=== PATIENT | male | born 1945 | race Caucasian/White ===

== ENCOUNTER → 2016-11-17 | Outpatient (CLI) | payer OTHER ==
[~2016-11-17] MED LIST: ACET325T26 PO; AMLO5TAB4 PO; AMOX1TAB64 PO; ASPI-496 PO; BACL-19 PO; BISA5TAB5 PO; CALC300T5 PO; CLOP75TA52 PO; DOCU100C33 PO; HYDR-3237 PO; LACT1CAP24 PO; LISI-170 PO; METO-93 PO; MULT1TAB13 PO; NICO1PAT13 TD; NICO1PAT16 TD; OMEP-110 PO; PRAZ5CAP2 PO; SIMV40TA PO; [UNRECOGNIZED DRUG - CODE] PO
== END | disposition home or self-care (01) ==
LOC: CVU 06:53
PROVIDERS: ATTEND Family Medicine
DX: I73.9 Peripheral vascular disease, unspecified (principal); I25.10 Atherosclerotic heart disease of native coronary artery without angina pectoris; I10 Essential (primary) hypertension; I77.1 Stricture of artery; I65.23 Occlusion and stenosis of bilateral carotid arteries; E78.5 Hyperlipidemia, unspecified; Z86.79 Personal history of other diseases of the circulatory system; Z87.891 Personal history of nicotine dependence; Z95.1 Presence of aortocoronary bypass graft
CPT/HCPCS: 93880; 93922; 93925; 93978

== ENCOUNTER → 2017-03-31 | Outpatient (CLI) | payer OTHER ==
[~2017-03-31] MED LIST changes: +NICO-486 TD; +NICO-487 TD; -NICO1PAT13 TD; -NICO1PAT16 TD; +REGADENOSON 0.4 MG/5 ML SYRINGE ONE
== END | disposition home or self-care (01) ==
LOC: CFH 07:53
PROVIDERS: ATTEND Internal Medicine Cardiovascular Disease
DX: Z95.1 Presence of aortocoronary bypass graft (principal)
CPT/HCPCS: 78452; 93017; A9502; J2785

== ENCOUNTER 2017-08-03 18:06 | Emergency (ER) | payer OTHER ==
[~2017-08-03] VITALS: Ht 170.2 cm; Wt 89.2 kg
[~2017-08-03 18:06] MED LIST changes: -REGADENOSON 0.4 MG/5 ML SYRINGE ONE
[2017-08-03 19:06] LABS: BASOPHILS # (AUTO) 0.03 x10^3/uL (0-0.1); BASOPHILS % (AUTO) 0 % (0-1); EOSINOPHILS # (AUTO) 0.12 x10^3/uL (0-0.4); EOSINOPHILS % (AUTO) 2 % (1-7); LYMPHOCYTES # (AUTO) 0.94 x10^3/uL (1-3.4); LYMPHOCYTES % (AUTO) 13 % (22-44); MD NO; MEAN CORPUSCULAR HEMOGLOBIN 34.2 pg (27.5-34.5); MEAN CORPUSCULAR HGB CONC 34.7 g/dL (33.2-36.2); MEAN CORPUSCULAR VOLUME 98.6 fL (81-97); MEAN PLATELET VOLUME 7.4 fL (7.4-10.4); MONOCYTES # (AUTO) 0.52 x10^3/uL (0.2-0.8); MONOCYTES % (AUTO) 7 % (2-9); NEUTROPHILS # (AUTO) 5.58 x10^3/uL (1.8-6.8); NEUTROPHILS % (AUTO) 78 % (42-75); PLATELET COUNT 249 x10^3/uL (130-400); RED BLOOD COUNT 4.37 x10^6/uL (4.38-5.82); RED CELL DISTRIBUTION WIDTH 13.1 % (9.4-14.8)
[2017-08-03 19:15] LABS: ANION GAP 8 mmol/L (5-15); CALCIUM 8.7 mg/dL (8.5-10.1); CHLORIDE 104 mmol/L (98-107); CREATININE 1.45 mg/dL (0.7-1.3)
[2017-08-03 19:20] LABS: TROPONIN I < 0.015 ng/mL (0.000-0.045)
[2017-08-03] MEDS ORDERED: LISINOPRIL 20 MG TABLET ONE (19:51)
[2017-08-03] MEDS ORDERED: LISINOPRIL 20 MG TABLET PO ONE (20:00)
[2017-08-03] MEDS ORDERED: SODIUM CHLORIDE 0.9% 1,000ML IVBOLUS ONE (20:00)
[2017-08-03 20:59] VITALS: BP 180/60
== END 2017-08-03 21:02 ==
LOC: ED 20:15
DX: I10 Essential (primary) hypertension (principal); I25.810 Atherosclerosis of coronary artery bypass graft(s) without angina pectoris; Z95.1 Presence of aortocoronary bypass graft; F10.20 Alcohol dependence, uncomplicated
CPT/HCPCS: 36415; 71045; 80048; 82040; 84484; 85025; 93005; 99285; J7030; 96360

== ENCOUNTER → 2018-01-19 | Outpatient (CLI) | payer OTHER | END | disposition home or self-care (01) | LOC: CVU 07:41 | PROVIDERS: ATTEND Internal Medicine Cardiovascular Disease | DX: I65.23 Occlusion and stenosis of bilateral carotid arteries (principal); I71.4 Abdominal aortic aneurysm, without rupture; Z95.1 Presence of aortocoronary bypass graft; Z72.0 Tobacco use | CPT/HCPCS: 93880; 93978 ==

== ENCOUNTER → 2018-04-02 | Outpatient (CLI) | payer MEDICARE ==
[~2018-04-02] MED LIST changes: +OMNIPAQUE 350 MG/ML, 100ML BOTTLE ONE
== END | disposition home or self-care (01) ==
LOC: CFH 08:38
PROVIDERS: ATTEND Surgery Vascular Surgery
DX: I65.23 Occlusion and stenosis of bilateral carotid arteries (principal)
CPT/HCPCS: 70498; Q9967

== ENCOUNTER → 2018-04-18 | Outpatient (CLI) | payer MEDICARE ==
[~2018-04-18] MED LIST changes: +MULT-751 PO; +MULT-91 PO; -OMNIPAQUE 350 MG/ML, 100ML BOTTLE ONE
[2018-04-18 10:51] LABS: BASOPHILS # (AUTO) 0.03 x10^3/uL (0-0.1); BASOPHILS % (AUTO) 0 % (0-1); EOSINOPHILS # (AUTO) 0.09 x10^3/uL (0-0.4); EOSINOPHILS % (AUTO) 1 % (1-7); LYMPHOCYTES # (AUTO) 0.94 x10^3/uL (1-3.4); LYMPHOCYTES % (AUTO) 12 % (22-44); MD NO; MEAN CORPUSCULAR HEMOGLOBIN 33.4 pg (27.5-34.5); MEAN CORPUSCULAR HGB CONC 33.9 g/dL (33.2-36.2); MEAN CORPUSCULAR VOLUME 98.5 fL (81-97); MEAN PLATELET VOLUME 6.9 fL (7.4-10.4); MONOCYTES # (AUTO) 0.57 x10^3/uL (0.2-0.8); MONOCYTES % (AUTO) 7 % (2-9); NEUTROPHILS # (AUTO) 6.03 x10^3/uL (1.8-6.8); NEUTROPHILS % (AUTO) 79 % (42-75); PLATELET COUNT 239 x10^3/uL (130-400); RED BLOOD COUNT 4.27 x10^6/uL (4.38-5.82); RED CELL DISTRIBUTION WIDTH 13.2 % (9.4-14.8)
[2018-04-18 11:05] LABS: CALCIUM 8.8 mg/dL (8.5-10.1); CHLORIDE 109 mmol/L (98-107)
[2018-04-18 11:09] LABS: ALANINE AMINOTRANSFERASE 30 U/L (12-78); ALBUMIN 3.7 g/dL (3.4-5.0); ALKALINE PHOSPHATASE 80 U/L (45-117); ANION GAP 7 mmol/L (5-15); BILIRUBIN,TOTAL 0.3 mg/dL (0.2-1.0); CREATININE 1.33 mg/dL (0.7-1.3); TOTAL PROTEIN 6.8 g/dL (6.4-8.2)
== END | disposition home or self-care (01) ==
LOC: STAR 09:44
PROVIDERS: ATTEND Surgery Vascular Surgery
DX: Z01.818 Encounter for other preprocedural examination (principal); I45.10 Unspecified right bundle-branch block; I25.2 Old myocardial infarction
CPT/HCPCS: 36415; 80053; 85025; 93005

== ENCOUNTER 2018-04-26 10:58 | Inpatient (IN) | payer MEDICARE ==
[~2018-04-26] VITALS: Ht 170.2 cm; Wt 87.0 kg
[~2018-04-26 10:58] MED LIST changes: +BACITRACIN 50,000 UNIT ONE; +BUPIVACAINE/PF-EPI 0.5% 1:200K ONE; +HEPARIN 1,000 UNITS/ML, 30ML ONE; +LIDOCAINE 1%, 20ML ONE; +PAPAVERINE 30 MG/ML, 2ML ONE; +PROTAMINE SULFATE 10 MG/ML, 5ML ONE
[2018-04-26] MEDS ORDERED: LACTATED RINGERS 1,000 ML IV SCH (11:37)
[2018-04-26 11:39] VITALS: BP 158/77
[2018-04-26] MEDS ORDERED: FENTANYL PF 250 MCG/5ML ONE (15:25)
[2018-04-26] MEDS ORDERED: PROPOFOL 10 MG/ML, 20ML ONE (15:32)
[2018-04-26] MEDS ORDERED: DEXAMETHASONE 4 MG/ML, 1ML ONE (15:32)
[2018-04-26] MEDS ORDERED: ONDANSETRON 2MG/ML, 2ML ONE ×2 (15:32→16:48)
[2018-04-26] MEDS ORDERED: ROCURONIUM 10 MG/ML,10ML ONE (15:32)
[2018-04-26] MEDS ORDERED: PHENYLEPHRINE 10 MG/ML ONE (15:32)
[2018-04-26] MEDS ORDERED: CEFAZOLIN 1,000 MG ONE (15:32)
[2018-04-26] MEDS ORDERED: SUGAMMADEX 200 MG/2 ML IVPush ONE (16:13)
[2018-04-26] MEDS ORDERED: LABETALOL 5MG/ML, 20ML IV PRN (16:30)
[2018-04-26] MEDS ORDERED: hydrALAzine 20 MG/ML, 1ML IV PRN (16:30)
[2018-04-26] MEDS ORDERED: HYDROmorphone 2 MG/ML, 1ML IVPush PRN (16:30)
[2018-04-26] MEDS ORDERED: PROMETHAZINE 25 MG/ML, 1ML IV PRN (16:30)
[2018-04-26] MEDS ORDERED: FENTANYL PF 100 MCG/2ML IV PRN (16:30)
[2018-04-26] MEDS ORDERED: ONDANSETRON 2MG/ML, 2ML IV PRN ×2 (16:30→21:30)
[2018-04-26] MEDS ORDERED: THROMBIN 5,000 UNIT VIAL TP ONE (16:40)
[2018-04-26] MEDS ORDERED: NITROPRUSSIDE 25 MG/ML, 2ML ONE (16:47)
[2018-04-26] MEDS ORDERED: HYDROmorphone 1 MG/ML, 1ML ONE (17:59)
[2018-04-26] MEDS ORDERED: LABETALOL 5MG/ML, 20ML IVPush PRN (21:30)
[2018-04-26] MEDS ORDERED: HYDROcodone/APAP 5/325 TABLET PO PRN (21:30)
[2018-04-26] MEDS ORDERED: morphine SULFATE 10 MG/ML, 1ML IV PRN (21:30)
[2018-04-26] MEDS ORDERED: NITROPRUSSIDE 50 MG in DEXTROSE 5% 248 ML IV SCH (21:30)
[2018-04-26] MEDS: POTASSIUM CHLORIDE 20 MEQ in D5%-0.45% NACL 1,000 ML IV SCH (21:50)
[2018-04-27] MEDS: CEFAZOLIN PMX 1GM/50ML 50 ML IVPB SCH ×2 (00:47→08:37)
[2018-04-27 00:54] VITALS: BP 116/67
[2018-04-27 07:14] VITALS: BP 144/73
[2018-04-27] MEDS ORDERED: SODIUM CHLORIDE FLUSH 10ML SYR IVF SCH (09:00)
[2018-04-27] MEDS: POTASSIUM CHLORIDE 20 MEQ in D5%-0.45% NACL 1,000 ML IV SCH (10:16)
[2018-04-27] MEDS ORDERED: HYDR-3240 PO (10:35)
== END 2018-04-27 11:42 | disposition home or self-care (01) | DRG 39 ==
LOC: ORIP 10:58 → 4NOR 19:58 → DCLOUNGE 04-27 11:34
PROVIDERS: ADMIT Surgery Vascular Surgery; ATTEND Surgery Vascular Surgery
PROC: 03UM0JZ Supplement Right External Carotid Artery with Synthetic Substitute, Open Approach (ICD-10-PCS; 2018-04-26)
PROC: 03UK0JZ Supplement Right Internal Carotid Artery with Synthetic Substitute, Open Approach (ICD-10-PCS; 2018-04-26)
PROC: 03HY32Z Insertion of Monitoring Device into Upper Artery, Percutaneous Approach (ICD-10-PCS; 2018-04-26)
PROC: 4A10X4Z Monitoring of Central Nervous Electrical Activity, External Approach (ICD-10-PCS; 2018-04-26)
PROC: 03CH0Z6 (ICD-10-PCS; 2018-04-26)
PROC: 03CK0ZZ Extirpation of Matter from Right Internal Carotid Artery, Open Approach (ICD-10-PCS; 2018-04-26)
PROC: 03CM0ZZ Extirpation of Matter from Right External Carotid Artery, Open Approach (ICD-10-PCS; 2018-04-26)
PROC: 03UH0JZ Supplement Right Common Carotid Artery with Synthetic Substitute, Open Approach (ICD-10-PCS; principal; 2018-04-26 13:30)
DX: I65.21 Occlusion and stenosis of right carotid artery (principal); E78.00 Pure hypercholesterolemia, unspecified; I10 Essential (primary) hypertension; I25.10 Atherosclerotic heart disease of native coronary artery without angina pectoris; I73.9 Peripheral vascular disease, unspecified; Z86.73 Personal history of transient ischemic attack (TIA), and cerebral infarction without residual deficits; Z72.0 Tobacco use; Z80.1 Family history of malignant neoplasm of trachea, bronchus and lung; Z80.0 Family history of malignant neoplasm of digestive organs; Z80.52 Family history of malignant neoplasm of bladder; I65.22 Occlusion and stenosis of left carotid artery
CPT/HCPCS: 36415; 86850; 86900; 95938; 95941; G0378; J0690; J1100; J1170; J1644; J2405; J2704; J2720; J3010; J3480; J3490; C1768; J2370; J2440; J7120

== ENCOUNTER → 2019-01-25 | Outpatient (CLI) | payer MEDICARE ==
[~2019-01-25] MED LIST changes: -BACITRACIN 50,000 UNIT ONE; -BUPIVACAINE/PF-EPI 0.5% 1:200K ONE; +ERGO500017 PO; -HEPARIN 1,000 UNITS/ML, 30ML ONE; +HYDR-3240 PO; +IRBE300T16 PO; -LIDOCAINE 1%, 20ML ONE; +PANT40TA5 PO; -PAPAVERINE 30 MG/ML, 2ML ONE; -PROTAMINE SULFATE 10 MG/ML, 5ML ONE; +SUCR1TAB33 PO; +VALS160T3 PO
== END | disposition home or self-care (01) ==
LOC: RAD 14:15
PROVIDERS: ATTEND Internal Medicine Gastroenterology
DX: R19.7 Diarrhea, unspecified (principal); M47.816 Spondylosis without myelopathy or radiculopathy, lumbar region; F17.200 Nicotine dependence, unspecified, uncomplicated
CPT/HCPCS: 74018

== ENCOUNTER 2019-02-06 10:39 | Inpatient (IN) | payer MEDICARE ==
[~2019-02-06] VITALS: Ht 170.2 cm; Wt 85.0 kg
--- NOTE | 2019-02-06 11:02 | NUR ---
PT A&OX4, RESP EVEN & UNLABORED, SPEECH CLEAR. C/O DIARRHEA FOR WEEKS. RECENT HX BLEEDING ULCER. SAW GI: H.PYLORI TEST NEG 3 WKS AGO. DENIES ABD PAIN. ABD XR 10 DAYS AGO AT [facility]. LAST BM: TODAY - YELLOW LIQUID. "ANYTHING I EAT GOES RIGHT THROUGH ME". HAS BEEN DRINKING COFFEE & APPLE JUICE. TODAY BP: 200/95. DRANK VODKA SHOT TO LOWER BP.
--- NOTE | 2019-02-06 11:16 | NUR ---
DR GAMING BS FOR EXAM
[2019-02-06] MEDS ORDERED: MULT-758 PO (11:21)
[2019-02-06] MEDS ORDERED: CLOP75TA PO (11:21)
[2019-02-06] MEDS ORDERED: VIT1TABL32 PO (11:21)
[2019-02-06] MEDS ORDERED: ASPI-496 PO (11:21)
[2019-02-06] MEDS ORDERED: SODIUM CHLORIDE 0.9% 1,000ML IVBOLUS ONE (11:30)
[2019-02-06] MEDS ORDERED: SODIUM CHLORIDE FLUSH 10ML SYR IVF ONE (11:30)
--- NOTE | 2019-02-06 11:45 | NUR ---
PT AMBULATORY TO & FROM [facility] W/OUT INCIDENT; GAIT STEADY. STOOL SPECIMEN PROVIDED: DANE, LIQUID.
[2019-02-06 11:56] LABS: BASOPHILS # (AUTO) 0.04 x10^3/uL (0-0.1); BASOPHILS % (AUTO) 1 % (0-1); EOSINOPHILS # (AUTO) 0.02 x10^3/uL (0-0.4); EOSINOPHILS % (AUTO) 0 % (1-7); LYMPHOCYTES % (AUTO) 25 % (22-44); MD NO; MEAN CORPUSCULAR HGB CONC 33.1 g/dL (33.2-36.2); MEAN CORPUSCULAR VOLUME 90.7 fL (81-97); MEAN PLATELET VOLUME 6.5 fL (7.4-10.4); MONOCYTES % (AUTO) 8 % (2-9); NEUTROPHILS # (AUTO) 3.44 x10^3/uL (1.8-6.8); NEUTROPHILS % (AUTO) 66 % (42-75); PLATELET COUNT 234 x10^3/uL (130-400); RED BLOOD COUNT 4.96 x10^6/uL (4.38-5.82); RED CELL DISTRIBUTION WIDTH 16.9 % (9.4-14.8)
[2019-02-06 12:06] LABS: ALBUMIN 3.6 g/dL (3.4-5.0); ANION GAP 8 mmol/L (5-15); CALCIUM 8.4 mg/dL (8.5-10.1); CHLORIDE 109 mmol/L (98-107)
[2019-02-06 12:10] LABS: ALANINE AMINOTRANSFERASE 61 U/L (12-78); ALKALINE PHOSPHATASE 72 U/L (45-117); BILIRUBIN,TOTAL 0.4 mg/dL (0.2-1.0); TOTAL PROTEIN 7.2 g/dL (6.4-8.2)
[2019-02-06 12:33] LABS: MICROSCOPIC AUTO
[2019-02-06 12:35] LABS: CULTURE INDICATED? NO
[2019-02-06 13:30] LABS: CLOSTRIDIUM DIFFICILE ANTIGEN NEGATIVE; CLOSTRIDIUM DIFFICILE TOXIN NEGATIVE (Negative)
--- NOTE | 2019-02-06 14:19 | NUR ---
PT C/O DIZZINESS W/ STANDING.
--- NOTE | 2019-02-06 14:26 | NUR ---
DR GAMING NOTIFIED OF PT'S C/O DIZZINESS. ORTHO VS DONE
--- NOTE | 2019-02-06 15:20 | NUR ---
PT AMBULATORY TO & FROM [facility] W/OUT INCIDENT; GAIT SLOW & STEADY.
[2019-02-06] MEDS ORDERED: SULFAMETH./TRIMETHOPRIM 20 ML in DEXTROSE 5% 500 ML IV ONE (15:30)
--- NOTE | 2019-02-06 15:38 | NUR ---
SEPTRA IV ORDER CANCELLED (VO DR GAMING); ORAL ANTIBIOTIC TO BE ORDERED.
[2019-02-06] MEDS ORDERED: SULFAMETH./TRIMETHOPRIM DS 800MG/160MG TABLET ONE (15:46)
--- NOTE | 2019-02-06 15:48 | NUR ---
AMBULATORY TO & FROM [facility] W/OUT INCIDENT; GAIT STEADY. REPORTS LIGHTHEADEDNESS.
[2019-02-06] MEDS ORDERED: SULFAMETH./TRIMETHOPRIM DS 800MG/160MG TABLET PO ONE (16:00)
--- NOTE | 2019-02-06 16:06 | NUR ---
PT REPORT TO SHARDA COLON FOR ROOM 407
[2019-02-06] MEDS ORDERED: SODIUM CHLORIDE 0.9% 1,000 ML IV SCH ×2 (17:00→17:39)
[2019-02-06] MEDS ORDERED: hydrALAzine 20 MG/ML, 1ML IV PRN (17:00)
[2019-02-06 17:04] VITALS: BP 190/80
[2019-02-06 17:07] VITALS: BP 200/84
[2019-02-06 17:09] VITALS: BP 190/79
[2019-02-06] MEDS ORDERED: morphine SULFATE 10 MG/ML, 1ML IVPush PRN (18:00)
[2019-02-06] MEDS ORDERED: ONDANSETRON 2MG/ML, 2ML IVPush PRN (18:00)
[2019-02-06] MEDS ORDERED: CHLORDIAZEPOXIDE 25 MG CAPSULE PO PRN (18:00)
[2019-02-06] MEDS ORDERED: LORazepam 2 MG/ML, 1ML IV PRN ×5 (18:30)
[2019-02-06] MEDS: SODIUM CHLORIDE 0.9% 1,000 ML IV SCH (18:30)
[2019-02-06] MEDS ORDERED: LORazepam 1MG TABLET PO PRN ×4 (18:30)
[2019-02-06] MEDS: NICOTINE 21 MG/24 HR PATCH.TD24 TD SCH (18:33)
[2019-02-06 18:35] VITALS: BP 178/76
[2019-02-06] MEDS: LORazepam 0.5MG TABLET PO PRN ×2 (18:46→22:25)
[2019-02-06 20:12] VITALS: BP 167/79
[2019-02-06] MEDS: PANTOPRAZOLE 40 MG IV IVPush SCH (22:25)
[2019-02-06] MEDS: POTASSIUM CHLORIDE 20 MEQ, MAGNESIUM SULFATE 1 GM, FOLIC ACID 1 MG, THIAMINE 200 MG, MV... IV SCH (22:25)
[2019-02-07] VITALS (7 sets, daily range): BP systolic 136–183; BP diastolic 74–80
[2019-02-07 06:23] LABS: CHLORIDE 113 mmol/L (98-107)
[2019-02-07 06:30] LABS: ALANINE AMINOTRANSFERASE 45 U/L (12-78); ALKALINE PHOSPHATASE 64 U/L (45-117); ANION GAP 6 mmol/L (5-15); BILIRUBIN,TOTAL 0.5 mg/dL (0.2-1.0); CALCIUM 7.7 mg/dL (8.5-10.1); CREATININE 1.22 mg/dL (0.7-1.3); TOTAL PROTEIN 5.9 g/dL (6.4-8.2)
[2019-02-07 06:36] LABS: BASOPHILS # (AUTO) 0.03 x10^3/uL (0-0.1); BASOPHILS % (AUTO) 1 % (0-1); EOSINOPHILS # (AUTO) 0.06 x10^3/uL (0-0.4); EOSINOPHILS % (AUTO) 1 % (1-7); LYMPHOCYTES # (AUTO) 1.07 x10^3/uL (1-3.4); LYMPHOCYTES % (AUTO) 22 % (22-44); MD NO; MEAN CORPUSCULAR HEMOGLOBIN 30.2 pg (27.5-34.5); MEAN CORPUSCULAR VOLUME 91.5 fL (81-97); MEAN PLATELET VOLUME 7.4 fL (7.4-10.4); MONOCYTES % (AUTO) 11 % (2-9); NEUTROPHILS % (AUTO) 65 % (42-75); PLATELET COUNT 174 x10^3/uL (130-400); RED BLOOD COUNT 4.33 x10^6/uL (4.38-5.82); RED CELL DISTRIBUTION WIDTH 17.4 % (9.4-14.8)
[2019-02-07] MEDS: SODIUM CHLORIDE 0.9% 1,000 ML IV SCH ×3 (06:42→22:28)
[2019-02-07] MEDS: CLOPIDOGREL 75 MG TABLET PO SCH (08:51)
[2019-02-07] MEDS: PRAZOSIN 5 MG CAPSULE PO SCH ×2 (08:51→21:35)
[2019-02-07] MEDS: AMLODIPINE 10 MG TAB PO SCH (08:52)
[2019-02-07] MEDS: VALSARTAN 160 MG TABLET PO SCH (08:52)
[2019-02-07] MEDS: NEUTRA PHOS K 250 MG TABLET PO SCH ×3 (08:52→21:35)
[2019-02-07] MEDS: PANTOPRAZOLE 40 MG IV IVPush SCH ×2 (08:52→21:35)
[2019-02-07] MEDS: ENOXAPARIN 40 MG/0.4 ML SQ SCH (08:52)
[2019-02-07] MEDS: LORazepam 0.5MG TABLET PO PRN ×2 (13:01→17:19)
[2019-02-07] MEDS: NICOTINE 21 MG/24 HR PATCH.TD24 TD SCH (17:08)
[2019-02-07] MEDS ORDERED: ATORVASTATIN 40 MG TABLET PO SCH (21:00)
[2019-02-07] MEDS: POTASSIUM CHLORIDE 20 MEQ, MAGNESIUM SULFATE 1 GM, FOLIC ACID 1 MG, THIAMINE 200 MG, MV... IV SCH (21:35)
[2019-02-08 01:16] VITALS: BP 145/72
[2019-02-08] MEDS: LORazepam 0.5MG TABLET PO PRN (04:53)
[2019-02-08] MEDS: SODIUM CHLORIDE 0.9% 1,000 ML IV SCH ×2 (05:40→14:00)
[2019-02-08 05:43] LABS: BASOPHILS # (AUTO) 0.03 x10^3/uL (0-0.1); BASOPHILS % (AUTO) 1 % (0-1); EOSINOPHILS # (AUTO) 0.07 x10^3/uL (0-0.4); EOSINOPHILS % (AUTO) 2 % (1-7); LYMPHOCYTES # (AUTO) 0.79 x10^3/uL (1-3.4); LYMPHOCYTES % (AUTO) 22 % (22-44); MD NO; MEAN CORPUSCULAR HEMOGLOBIN 30.4 pg (27.5-34.5); MEAN CORPUSCULAR HGB CONC 33.2 g/dL (33.2-36.2); MEAN CORPUSCULAR VOLUME 91.5 fL (81-97); MONOCYTES # (AUTO) 0.36 x10^3/uL (0.2-0.8); MONOCYTES % (AUTO) 10 % (2-9); NEUTROPHILS # (AUTO) 2.35 x10^3/uL (1.8-6.8); NEUTROPHILS % (AUTO) 65 % (42-75); PLATELET COUNT 148 x10^3/uL (130-400); RED BLOOD COUNT 4.24 x10^6/uL (4.38-5.82); RED CELL DISTRIBUTION WIDTH 17.4 % (9.4-14.8)
[2019-02-08 06:00] LABS: ALBUMIN 2.9 g/dL (3.4-5.0); ANION GAP 8 mmol/L (5-15); CALCIUM 7.8 mg/dL (8.5-10.1); CHLORIDE 114 mmol/L (98-107)
[2019-02-08 06:03] LABS: ALANINE AMINOTRANSFERASE 36 U/L (12-78); ALKALINE PHOSPHATASE 67 U/L (45-117); BILIRUBIN,TOTAL 0.5 mg/dL (0.2-1.0); CREATININE 1.24 mg/dL (0.7-1.3)
[2019-02-08 07:28] VITALS: BP 186/88
[2019-02-08] MEDS ORDERED: FLU VACC QS2019-20 36MOS UP/PF 0.5 ML IM-VACC ONE (07:30)
[2019-02-08] MEDS: VALSARTAN 160 MG TABLET PO SCH (09:28)
[2019-02-08] MEDS: ENOXAPARIN 40 MG/0.4 ML SQ SCH (09:28)
[2019-02-08] MEDS: NEUTRA PHOS K 250 MG TABLET PO SCH (09:28)
[2019-02-08] MEDS: AMLODIPINE 10 MG TAB PO SCH (09:28)
[2019-02-08] MEDS: PANTOPRAZOLE 40 MG IV IVPush SCH (09:28)
[2019-02-08] MEDS: CLOPIDOGREL 75 MG TABLET PO SCH (09:28)
[2019-02-08] MEDS: PRAZOSIN 5 MG CAPSULE PO SCH (09:28)
[2019-02-08 09:30] VITALS: BP 167/76
[2019-02-08 13:19] VITALS: BP 157/71
[2019-02-08] MEDS ORDERED: ATOR40TA78 PO (13:40)
== END 2019-02-08 16:15 | disposition home or self-care (01) | DRG 640 ==
LOC: ED 11:01 → EDIP 15:22 → 4WST 16:19 → DCLOUNGE 02-08 16:05
PROVIDERS: ADMIT Internal Medicine; ATTEND Internal Medicine
DX: E86.0 Dehydration (principal); N17.0 Acute kidney failure with tubular necrosis; I47.2 Ventricular tachycardia; K55.1 Chronic vascular disorders of intestine; I43 Cardiomyopathy in diseases classified elsewhere; F10.239 Alcohol dependence with withdrawal, unspecified; K52.9 Noninfective gastroenteritis and colitis, unspecified; I16.0 Hypertensive urgency; N18.3 Chronic kidney disease, stage 3 (moderate); E78.5 Hyperlipidemia, unspecified; I13.10 Hypertensive heart and chronic kidney disease without heart failure, with stage 1 through stage 4 chronic kidney disease, or unspecified chronic kidney disease; N26.1 Atrophy of kidney (terminal); D63.8 Anemia in other chronic diseases classified elsewhere; M51.36 Other intervertebral disc degeneration, lumbar region; Y90.9 Presence of alcohol in blood, level not specified; F17.210 Nicotine dependence, cigarettes, uncomplicated; H54.62 Unqualified visual loss, left eye, normal vision right eye; I25.10 Atherosclerotic heart disease of native coronary artery without angina pectoris; I73.9 Peripheral vascular disease, unspecified; Z86.79 Personal history of other diseases of the circulatory system; Z95.1 Presence of aortocoronary bypass graft; Z87.11 Personal history of peptic ulcer disease; Z79.899 Other long term (current) drug therapy
CPT/HCPCS: 36415; 74176; 80053; 81001; 83690; 83735; 84100; 85025; 87046; 87252; 87324; 87427; 90686; 93005; 93306; 93880; 96360; 96361; G0378; J1650; J3411; J3475; J3480; J7042; C9113; J0360; J7030

== ENCOUNTER 2019-03-28 17:48 | Emergency (ER) | payer MEDICARE ==
[~2019-03-28] VITALS: Ht 170.2 cm; Wt 88.4 kg
[~2019-03-28 17:48] MED LIST changes: +ATOR40TA78 PO; +CLOP75TA PO; +MULT-758 PO; +VIT1TABL32 PO
[2019-03-28 18:00] VITALS: BP 143/68
--- NOTE | 2019-03-28 22:31 | NUR ---
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
--- NOTE | 2019-03-28 23:00 | NUR ---
CLASSROOM PARAPROFESSIONAL: NO ANSWER WHEN CALLED FOR REPEAT VITALS
--- NOTE | 2019-03-28 23:44 | NUR ---
NO ANSWER FOR RE-VITAL
== END 2019-03-28 23:52 | disposition left against medical advice (07) ==
LOC: ED 23:46
DX: I10 Essential (primary) hypertension (principal); R42 Dizziness and giddiness; Z53.21 Procedure and treatment not carried out due to patient leaving prior to being seen by health care provider

== ENCOUNTER 2019-03-30 11:58 | Emergency (ER) | payer MEDICARE ==
[~2019-03-30] VITALS: Ht 170.2 cm; Wt 86.5 kg
--- NOTE | 2019-03-30 12:43 | NUR ---
assuemd care of pt. vss. pt to commode. call simmons in reach. as
[2019-03-30] MEDS ORDERED: SODIUM CHLORIDE FLUSH 10ML SYR IVF ONE (13:00)
[2019-03-30] MEDS ORDERED: SODIUM CHLORIDE 0.9% 1,000ML IVBOLUS ONE (13:00)
[2019-03-30] MEDS ORDERED: LORazepam 2 MG/ML, 1ML IVPush PRN (13:00)
--- NOTE | 2019-03-30 13:17 | NUR ---
PIV EST, AWAITING THIAMINE. LABS SENT. VSS. A&OX4 GCS 15, CALM, COOPERATIVE. CALL ELENA IN REACH.
[2019-03-30] MEDS ORDERED: LORazepam 2 MG/ML, 1ML ONE (13:19)
[2019-03-30 13:24] LABS: BASOPHILS # (AUTO) 0.01 x10^3/uL (0-0.1); BASOPHILS % (AUTO) 0 % (0-1); EOSINOPHILS % (AUTO) 0 % (1-7); LYMPHOCYTES # (AUTO) 0.68 x10^3/uL (1-3.4); LYMPHOCYTES % (AUTO) 9 % (22-44); MD NO; MEAN CORPUSCULAR HEMOGLOBIN 30.2 pg (27.5-34.5); MEAN CORPUSCULAR VOLUME 88.9 fL (81-97); MEAN PLATELET VOLUME 7.6 fL (7.4-10.4); MONOCYTES # (AUTO) 0.44 x10^3/uL (0.2-0.8); MONOCYTES % (AUTO) 6 % (2-9); NEUTROPHILS # (AUTO) 6.52 x10^3/uL (1.8-6.8); NEUTROPHILS % (AUTO) 85 % (42-75); PLATELET COUNT 168 x10^3/uL (130-400); RED BLOOD COUNT 4.36 x10^6/uL (4.38-5.82); RED CELL DISTRIBUTION WIDTH 17.7 % (9.4-14.8)
[2019-03-30] MEDS ORDERED: OMEP40CA42 PO (13:24)
[2019-03-30] MEDS ORDERED: CLON0.1T22 PO (13:24)
[2019-03-30] MEDS ORDERED: THIAMINE 100 MG in SODIUM CHLORIDE 0.9% 50 ML IVPB ONE (13:30)
[2019-03-30 13:37] LABS: ALANINE AMINOTRANSFERASE 25 U/L (12-78); ALBUMIN 3.4 g/dL (3.4-5.0); ANION GAP 6 mmol/L (5-15); CALCIUM 8.2 mg/dL (8.5-10.1); CHLORIDE 110 mmol/L (98-107)
[2019-03-30 13:42] LABS: ALKALINE PHOSPHATASE 91 U/L (45-117); BILIRUBIN,TOTAL 0.5 mg/dL (0.2-1.0); CREATININE 1.52 mg/dL (0.7-1.3); TOTAL PROTEIN 6.8 g/dL (6.4-8.2); TROPONIN I 0.024 ng/mL (0.000-0.045)
--- NOTE | 2019-03-30 14:15 | NUR ---
pt made aware of need for ua. as
[2019-03-30 14:52] LABS: MICROSCOPIC AUTO
[2019-03-30 14:54] LABS: CULTURE INDICATED? YES
[2019-03-30 15:00] VITALS: BP 157/71
--- NOTE | 2019-03-30 15:39 | NUR ---
pt to be dc. dr wan in room for update. pt having dante mitchell md aware. vs. given dc info/rx. daughter waiting in brown. as
== END 2019-03-30 16:03 | disposition home or self-care (01) ==
LOC: ED 15:20
DX: N28.9 Disorder of kidney and ureter, unspecified (principal); N30.00 Acute cystitis without hematuria; F10.239 Alcohol dependence with withdrawal, unspecified; R45.4 Irritability and anger; I10 Essential (primary) hypertension; I25.10 Atherosclerotic heart disease of native coronary artery without angina pectoris; R19.7 Diarrhea, unspecified; Y90.9 Presence of alcohol in blood, level not specified
CPT/HCPCS: 36415; 71045; 80053; 81001; 84484; 85025; 87077; 87086; 93005; 96361; 96374; 96375; 99284; J2060; J3411; J7030; 87186

== ENCOUNTER 2019-05-15 20:36 | Observation (INO) | payer MEDICARE ==
[~2019-05-15] VITALS: Ht 170.2 cm; Wt 82.4 kg
[~2019-05-15 20:36] MED LIST changes: +CLON0.1T22 PO; -IRBE300T16 PO; +IRBE300T8 PO; +OMEP40CA42 PO
[2019-05-15 21:17] LABS: BASOPHILS # (AUTO) 0.05 x10^3/uL (0-0.1); BASOPHILS % (AUTO) 1 % (0-1); EOSINOPHILS # (AUTO) 0.02 x10^3/uL (0-0.4); EOSINOPHILS % (AUTO) 0 % (1-7); LYMPHOCYTES # (AUTO) 1.08 x10^3/uL (1-3.4); LYMPHOCYTES % (AUTO) 22 % (22-44); MD NO; MEAN CORPUSCULAR HEMOGLOBIN 31.3 pg (27.5-34.5); MEAN CORPUSCULAR HGB CONC 34.1 g/dL (33.2-36.2); MEAN CORPUSCULAR VOLUME 91.8 fL (81-97); MEAN PLATELET VOLUME 6.1 fL (7.4-10.4); MONOCYTES # (AUTO) 0.53 x10^3/uL (0.2-0.8); MONOCYTES % (AUTO) 11 % (2-9); NEUTROPHILS # (AUTO) 3.32 x10^3/uL (1.8-6.8); NEUTROPHILS % (AUTO) 66 % (42-75); PLATELET COUNT 253 x10^3/uL (130-400); RED BLOOD COUNT 4.75 x10^6/uL (4.38-5.82); RED CELL DISTRIBUTION WIDTH 15.8 % (9.4-14.8)
[2019-05-15 21:28] LABS: ALANINE AMINOTRANSFERASE 64 U/L (12-78); ALBUMIN 3.6 g/dL (3.4-5.0); ANION GAP 8 mmol/L (5-15); CALCIUM 8.4 mg/dL (8.5-10.1); CHLORIDE 111 mmol/L (98-107); CREATININE 1.44 mg/dL (0.7-1.3)
[2019-05-15 21:33] LABS: ALKALINE PHOSPHATASE 86 U/L (45-117); BILIRUBIN,TOTAL 0.4 mg/dL (0.2-1.0); TOTAL PROTEIN 7.2 g/dL (6.4-8.2); TROPONIN I 0.022 ng/mL (0.000-0.045)
[2019-05-15] MEDS ORDERED: FOLIC ACID 1 MG TABLET PO ONE (22:00)
[2019-05-15] MEDS ORDERED: THIAMINE 100MG TABLET PO ONE (22:00)
[2019-05-15] MEDS ORDERED: SODIUM CHLORIDE 0.9% 1,000ML IVBOLUS ONE (22:00)
--- NOTE | 2019-05-15 22:16 | NUR ---
CT DELAY, PT NOT IN ROOM AT THIS TIME.
--- NOTE | 2019-05-15 23:05 | NUR ---
PT TO CT.
[2019-05-15] MEDS ORDERED: THIAMINE 100MG TABLET ONE (23:16)
--- NOTE | 2019-05-15 23:22 | NUR ---
UP TO BATHROOM WITH ASSISTANCE.
[2019-05-16] MEDS ORDERED: hydrALAzine 20 MG/ML, 1ML IV ONE
[2019-05-16] MEDS ORDERED: hydrALAzine 20 MG/ML, 1ML ONE
--- NOTE | 2019-05-16 00:50 | NUR ---
URINE SAMPLE COLLECTED. ASSISTED PT TO BSC.
--- NOTE | 2019-05-16 00:59 | NUR ---
C/O DIZZINESS AND LIGHT HEADED. WILL UPDATE ERP.
[2019-05-16 01:14] LABS: MICROSCOPIC AUTO
[2019-05-16] MEDS ORDERED: LORazepam 1MG TABLET ONE (01:17)
[2019-05-16 01:18] LABS: CULTURE INDICATED? YES
--- NOTE | 2019-05-16 01:22 | NUR ---
SECOND REQUEST FOR FOLIC ACID TO PHARMACY.
[2019-05-16] MEDS ORDERED: LORazepam 1MG TABLET PO ONE (01:30)
--- NOTE | 2019-05-16 01:54 | NUR ---
REPORT GIVEN TO KELLY ROBIN.
--- NOTE | 2019-05-16 01:59 | NUR ---
REPORT TO KELLY ROBIN.
[2019-05-16] MEDS ORDERED: CIPROFLOXACIN 500 MG TABLET PO ONE (02:00)
[2019-05-16 02:45] VITALS: BP 129/89
[2019-05-16 07:47] VITALS: BP 149/87
[2019-05-16] MEDS: CLOPIDOGREL 75 MG TABLET PO SCH (10:43)
[2019-05-16] MEDS: PRAZOSIN 5 MG CAPSULE PO SCH ×2 (10:43→20:00)
[2019-05-16] MEDS: AMLODIPINE 10 MG TAB PO SCH (10:43)
[2019-05-16] MEDS: VALSARTAN 160 MG TABLET PO SCH (10:43)
[2019-05-16] MEDS: OMEPRAZOLE 20 MG CAPSULE.DR PO SCH (10:43)
[2019-05-16 11:47] VITALS: BP 111/73
[2019-05-16] MEDS ORDERED: LORazepam 0.5MG TABLET PO PRN (12:00)
[2019-05-16] MEDS ORDERED: LORazepam 1MG TABLET PO PRN ×4 (12:00)
[2019-05-16] MEDS ORDERED: LORazepam 2 MG/ML, 1ML IV PRN ×4 (12:00)
[2019-05-16] MEDS: LORazepam 2 MG/ML, 1ML IV PRN ×2 (12:17→14:40)
[2019-05-16 14:15] VITALS: BP 124/79
[2019-05-16] MEDS: CEFTRIAXONE PMX 1GM/50ML 50 ML IV SCH (18:24)
[2019-05-16] MEDS: NICOTINE 21 MG/24 HR PATCH.TD24 TD SCH (19:11)
[2019-05-16 19:43] VITALS: BP 173/94
[2019-05-16] MEDS: ATORVASTATIN 40 MG TABLET PO SCH (20:00)
[2019-05-16 23:50] VITALS: BP 161/80
[2019-05-17 01:43] VITALS: BP 175/91
[2019-05-17 04:17] VITALS: BP 167/80
[2019-05-17] MEDS: ACETAMINOPHEN 325 MG TABLET PO PRN (04:24)
[2019-05-17 05:28] LABS: ANION GAP 8 mmol/L (5-15); CALCIUM 7.7 mg/dL (8.5-10.1); CHLORIDE 110 mmol/L (98-107)
[2019-05-17 05:44] LABS: BASOPHILS # (AUTO) 0.03 x10^3/uL (0-0.1); BASOPHILS % (AUTO) 1 % (0-1); EOSINOPHILS # (AUTO) 0.03 x10^3/uL (0-0.4); EOSINOPHILS % (AUTO) 1 % (1-7); LYMPHOCYTES % (AUTO) 22 % (22-44); MD NO; MEAN CORPUSCULAR HEMOGLOBIN 31.3 pg (27.5-34.5); MEAN CORPUSCULAR HGB CONC 33.6 g/dL (33.2-36.2); MEAN PLATELET VOLUME 6.5 fL (7.4-10.4); MONOCYTES # (AUTO) 0.45 x10^3/uL (0.2-0.8); MONOCYTES % (AUTO) 9 % (2-9); NEUTROPHILS # (AUTO) 3.35 x10^3/uL (1.8-6.8); NEUTROPHILS % (AUTO) 67 % (42-75); PLATELET COUNT 163 x10^3/uL (130-400); RED BLOOD COUNT 4.37 x10^6/uL (4.38-5.82)
[2019-05-17] MEDS: PRAZOSIN 5 MG CAPSULE PO SCH ×2 (08:36→21:21)
[2019-05-17] MEDS: AMLODIPINE 10 MG TAB PO SCH (08:36)
[2019-05-17] MEDS: OMEPRAZOLE 20 MG CAPSULE.DR PO SCH (08:36)
[2019-05-17] MEDS: VALSARTAN 160 MG TABLET PO SCH (08:36)
[2019-05-17] MEDS: CLOPIDOGREL 75 MG TABLET PO SCH (08:36)
[2019-05-17 10:08] VITALS: BP 154/85
[2019-05-17] MEDS: MECLIZINE 25 MG TABLET PO PRN (10:29)
[2019-05-17] MEDS: SODIUM CHLORIDE 0.9% 1,000 ML IV SCH (12:26)
[2019-05-17] MEDS: FOLIC ACID 1 MG TABLET PO SCH (12:41)
[2019-05-17] MEDS: THIAMINE 100MG TABLET PO SCH (12:41)
[2019-05-17 13:09] VITALS: BP 130/77
[2019-05-17] MEDS ORDERED: POTASSIUM CHLORIDE 20 MEQ TAB.ER.PRT PO ONE (15:30)
[2019-05-17] MEDS: CEFTRIAXONE PMX 1GM/50ML 50 ML IV SCH (16:32)
[2019-05-17 19:18] VITALS: BP 168/78
[2019-05-17] MEDS: ATORVASTATIN 40 MG TABLET PO SCH (21:21)
[2019-05-17] MEDS: NICOTINE 21 MG/24 HR PATCH.TD24 TD SCH (21:21)
[2019-05-18 01:29] VITALS: BP 148/82
[2019-05-18] MEDS: MECLIZINE 25 MG TABLET PO PRN ×3 (02:47→20:20)
[2019-05-18] MEDS: SODIUM CHLORIDE 0.9% 1,000 ML IV SCH ×2 (04:16→18:18)
[2019-05-18] MEDS: ACETAMINOPHEN 325 MG TABLET PO PRN ×2 (05:37→20:20)
[2019-05-18 07:16] VITALS: BP 176/85
[2019-05-18] MEDS: OMEPRAZOLE 20 MG CAPSULE.DR PO SCH (08:39)
[2019-05-18] MEDS: AMLODIPINE 10 MG TAB PO SCH (08:39)
[2019-05-18] MEDS: FOLIC ACID 1 MG TABLET PO SCH (08:39)
[2019-05-18] MEDS: PRAZOSIN 5 MG CAPSULE PO SCH ×2 (08:39→20:20)
[2019-05-18] MEDS: VALSARTAN 160 MG TABLET PO SCH (08:41)
[2019-05-18] MEDS: THIAMINE 100MG TABLET PO SCH (08:41)
[2019-05-18] MEDS: CLOPIDOGREL 75 MG TABLET PO SCH (08:41)
[2019-05-18 10:34] LABS: ANION GAP 6 mmol/L (5-15); CALCIUM 7.6 mg/dL (8.5-10.1); CHLORIDE 113 mmol/L (98-107); CREATININE 1.35 mg/dL (0.7-1.3)
[2019-05-18] MEDS ORDERED: POTASSIUM CHLORIDE 20 MEQ TAB.ER.PRT PO ONE (11:30)
[2019-05-18] MEDS ORDERED: PHARMACY MAY ADJ FOR RENAL FX MC PRN (14:30)
[2019-05-18 14:52] VITALS: BP 127/59
[2019-05-18] MEDS: AMPICILLIN/SULBACTAM 3 GM in SODIUM CHLORIDE 0.9% 100 ML IV SCH ×2 (15:16→20:21)
[2019-05-18 19:07] VITALS: BP 172/82
[2019-05-18] MEDS: NICOTINE 21 MG/24 HR PATCH.TD24 TD SCH (20:19)
[2019-05-18] MEDS: ATORVASTATIN 40 MG TABLET PO SCH (20:20)
[2019-05-19 00:09] VITALS: BP 169/91
[2019-05-19] MEDS: AMPICILLIN/SULBACTAM 3 GM in SODIUM CHLORIDE 0.9% 100 ML IV SCH ×2 (02:30→07:53)
[2019-05-19] MEDS: CLOPIDOGREL 75 MG TABLET PO SCH (07:43)
[2019-05-19] MEDS: VALSARTAN 160 MG TABLET PO SCH (07:43)
[2019-05-19] MEDS: OMEPRAZOLE 20 MG CAPSULE.DR PO SCH (07:43)
[2019-05-19] MEDS: AMLODIPINE 10 MG TAB PO SCH (07:43)
[2019-05-19] MEDS: PRAZOSIN 5 MG CAPSULE PO SCH (07:43)
[2019-05-19] MEDS: FOLIC ACID 1 MG TABLET PO SCH (07:44)
[2019-05-19] MEDS: THIAMINE 100MG TABLET PO SCH (07:44)
[2019-05-19 07:45] VITALS: BP 180/91
[2019-05-19] MEDS: SODIUM CHLORIDE 0.9% 1,000 ML IV SCH (07:53)
[2019-05-19 08:39] LABS: ANION GAP 7 mmol/L (5-15); CALCIUM 7.9 mg/dL (8.5-10.1); CHLORIDE 114 mmol/L (98-107); CREATININE 1.15 mg/dL (0.7-1.3)
[2019-05-19] MEDS ORDERED: MECL-101 PO (11:16)
[2019-05-19] MEDS ORDERED: AMOX1TAB64 PO (11:16)
== END 2019-05-19 14:29 | disposition home or self-care (01) ==
LOC: ED 05-16 01:20 → INTOOBSV 05-16 02:21 → 3N 05-16 02:21
DX: R42 Dizziness and giddiness (principal); F10.10 Alcohol abuse, uncomplicated; K27.9 Peptic ulcer, site unspecified, unspecified as acute or chronic, without hemorrhage or perforation; R19.7 Diarrhea, unspecified; E78.5 Hyperlipidemia, unspecified; D63.8 Anemia in other chronic diseases classified elsewhere; B95.2 Enterococcus as the cause of diseases classified elsewhere; N17.0 Acute kidney failure with tubular necrosis; I12.9 Hypertensive chronic kidney disease with stage 1 through stage 4 chronic kidney disease, or unspecified chronic kidney disease; I25.10 Atherosclerotic heart disease of native coronary artery without angina pectoris; I73.9 Peripheral vascular disease, unspecified; H54.62 Unqualified visual loss, left eye, normal vision right eye; F17.200 Nicotine dependence, unspecified, uncomplicated; Z95.1 Presence of aortocoronary bypass graft; Z79.899 Other long term (current) drug therapy
CPT/HCPCS: 36415; 70450; 71045; 80048; 80053; 80307; 81001; 83735; 84100; 84484; 85025; 87077; 87086; 87186; 93005; 96361; 96365; 96366; 96367; 96375; 96376; 97112; 97163; 97165; 97530; 99285; G0378; J0295; J0360; J0696; J2060; J7030

== ENCOUNTER 2019-11-13 11:35 | Outpatient (CLI) | payer MEDICARE ==
[~2019-11-13 11:35] MED LIST changes: +MECL-101 PO; -PANT40TA5 PO; +PANT40TA6 PO
== END 2019-11-13 23:59 | disposition home or self-care (01) ==
LOC: CVU 11:35
PROVIDERS: ATTEND Surgery Vascular Surgery
DX: I65.23 Occlusion and stenosis of bilateral carotid arteries (principal); I25.10 Atherosclerotic heart disease of native coronary artery without angina pectoris; E78.5 Hyperlipidemia, unspecified; I10 Essential (primary) hypertension
CPT/HCPCS: 93880

== ENCOUNTER 2020-01-22 13:16 | Inpatient (IN) | payer MEDICARE ==
[~2020-01-22] VITALS: Ht 170.2 cm; Wt 81.2 kg
[~2020-01-22 13:16] MED LIST changes: +LOPE-114 PO; +MAGN400T50 PO; +THIA100T67 PO
--- NOTE | 2020-01-22 13:35 | NUR ---
VIBHA CARTY, PT WITH [facility] TODAY PER EMS REPORT, CALL INITIALLY FOR +COVID. ON ARRIVAL PT FOUND ON GROUND, UNKNOWN LOC/MOA. FSBG 178. PT STATES TO EMS HE DRANK 1 PINT VODKA TODAY, FELL AFTER HIS "LADY FRIEND" LEFT HIM, PER PT HE WAS DOWN FOR A COUPLE HOURS. ON ARRIVAL PT SATING 88%RA, PLACED ON 2L NC. NO HOME O2 AT BASELINE, PT AOX2, DOES NOT RECALL FALL/INJURYS NOTED BLOOD FROM NOSE, MULTIPLE BRUISES ON ABD/ARMS.
--- NOTE | 2020-01-22 14:01 | NUR ---
PT MOVED TO RM 34 FOR BETTER VISIBLITY OF PT. PT TO ALL MONTIORS AT THIS TIME, AWAITING JACKY HERNANDEZ
[2020-01-22] MEDS ORDERED: SODIUM CHLORIDE FLUSH 10ML SYR IVF ONE (14:30)
[2020-01-22 14:42] LABS: BASOPHILS % (AUTO) 2 % (0-1); EOSINOPHILS % (AUTO) 0 % (1-7); LYMPHOCYTES % (AUTO) 12 % (22-44); MEAN CORPUSCULAR HEMOGLOBIN 34.5 pg (27.5-34.5); MEAN CORPUSCULAR HGB CONC 33.7 g/dL (33.2-36.2); MEAN PLATELET VOLUME 7.2 fL (7.4-10.4); MONOCYTES % (AUTO) 8 % (2-9); NEUTROPHILS % (AUTO) 77 % (42-75); PLATELET COUNT 227 x10^3/uL (130-400); RED CELL DISTRIBUTION WIDTH 16.2 % (9.4-14.8)
[2020-01-22 14:43] LABS: MD NO
[2020-01-22 15:03] LABS: ANION GAP 8 mmol/L (5-15); BILIRUBIN,TOTAL 0.2 mg/dL (0.2-1.0); CALCIUM 8.7 mg/dL (8.5-10.1); CHLORIDE 117 mmol/L (98-107)
[2020-01-22 15:04] LABS: ALANINE AMINOTRANSFERASE 35 U/L (12-78); ALBUMIN 3.1 g/dL (3.4-5.0); ALKALINE PHOSPHATASE 86 U/L (45-117); CREATINE KINASE, TOTAL 80 U/L (39-308); TOTAL PROTEIN 6.5 g/dL (6.4-8.2)
[2020-01-22 15:13] LABS: INTERNATIONAL NORMALIZED RATIO 1.02 (0.93-1.1); PROTHROMBIN TIME 10.8 Seconds (9.6-11.5)
--- NOTE | 2020-01-22 16:16 | NUR ---
CHRISTA JESSICA ([phone]) WOULD LIKE TO BE UPDATED ON DC FOR RIDE FOR PT
--- NOTE | 2020-01-22 17:21 | NUR ---
ATTEMPTED TO AMBULATE PT, PT IS STEADY ON FEET BUT BECAME SOB. PT PLACED ON O2 MONITOR, RA IS 85%. WILL UPDATE ERMD
--- NOTE | 2020-01-22 18:56 | NUR ---
BEDSIDE REPORT FROM NANNETTE ROBIN, PT CARE TRANSFERRED AT THIS TIME.
--- NOTE | 2020-01-22 19:12 | NUR ---
pt laying on gurney, appears to have an increased work of breathing. pt requiring 3L NC at this time, repositioned to be slightly more comfortable, head of bed raised, pt deneis additional questions or needs at this time, bed in lowest position, call light on lap, wctm. pt up for recheck
--- NOTE | 2020-01-22 20:08 | NUR ---
PT NAD, RESTING ON GURNEY, ASSISTED TO SIT UP STRAIGHTER AND PROVIDED HEAD REST FOR COMFORT, PT ALSO PROVIDED SMALL SIPS OF WATER FOR COMFORT, NAD, WATCHING TV, BED IN [facility], NO CHANGE IN CONDITION, WCTM. PT TO BE ADMITTED.
--- NOTE | 2020-01-22 20:10 | NUR ---
RN REQUESTED MED LIST, PT STATES "I DONT KNOW, I TAKE A WHOLE BOX FULL OF THEM".
[2020-01-22] MEDS ORDERED: SODIUM CHLORIDE FLUSH 10ML SYR IVF PRN (20:30)
[2020-01-22] MEDS ORDERED: DEXAMETHASONE 10 MG in SODIUM CHLORIDE 0.9% 50 ML IV ONE (20:30)
[2020-01-22] MEDS ORDERED: THIAMINE 200 MG in SODIUM CHLORIDE 0.9% 50 ML IV ONE (20:30)
--- NOTE | 2020-01-22 21:00 | NUR ---
PT MEDICATED PER MAR, NAD, RESTING ON GURNEY, DENIES ADDITIONAL QUESTIONS OR NEEDS. BED IN LOWEST, NO CHANGE IN CONDITION WCTM.
[2020-01-22 21:42] LABS: TROPONIN I 0.143 ng/mL (0.000-0.045)
[2020-01-22] MEDS ORDERED: LABETALOL 5MG/ML, 20ML IVPush PRN (22:00)
[2020-01-22] MEDS ORDERED: PROMETHAZINE 25 MG/ML, 1ML IM PRN (22:00)
[2020-01-22] MEDS ORDERED: NITROGLYCERIN 0.4 MG BOTTLE (25 TABS) SL PRN (22:00)
[2020-01-22] MEDS ORDERED: LORazepam 2 MG/ML, 1ML IVPush PRN (22:00)
[2020-01-22] MEDS ORDERED: morphine SULFATE 10 MG/ML, 1ML IVPush PRN (22:00)
--- NOTE | 2020-01-22 22:12 | NUR ---
PT ASSISTED TO BEDSIDE COMMODE TO URINATE AND HAVE BOWEL MOVEMENT. PT NAD, STATES HE FEELS MORE SHORT OF BREATH AT THIS TIME. NAD, WCTM. INFORMED.
[2020-01-22] MEDS ORDERED: HEPARIN 5,000 UNITS/ML, 1ML ONE (22:30)
[2020-01-22] MEDS ORDERED: ATORVASTATIN 40 MG TABLET ONE (22:31)
[2020-01-22] MEDS ORDERED: LORazepam 2 MG/ML, 1ML ONE (22:31)
[2020-01-22] MEDS: HEPARIN 5,000 UNITS/ML, 1ML SQ SCH (22:36)
[2020-01-22] MEDS: ATORVASTATIN 40 MG TABLET PO SCH (22:36)
[2020-01-22] MEDS: PRAZOSIN 5 MG CAPSULE PO SCH (22:42)
--- NOTE | 2020-01-22 22:59 | NUR ---
PT MEDICATED PER MAR, APPEARS CALMER AT THIS TIME. PROVIDED URINAL, NAD, BED IN LOWEST, LINENS CHANGED, DENIES ADDITIONAL NEEDS AT THIS TIME, WCTM. WAITING FOR ADMIT BED.
--- NOTE | 2020-01-23 00:13 | NUR ---
PT RESTING ON GURNEY, NAD, EYES CLOSED, EVEN AND UNLABORED RESPIRATIONS, MEDICATION ORDER FROM PHARMACY, BED IN LOWEST, CALL LIGHT ON LAP, WCTM. WAITING FOR ADMIT BED.
[2020-01-23] MEDS: ALBUTEROL HFA 90 MCG/SPRAY INH PRN ×3 (00:19→17:19)
[2020-01-23 00:45] LABS: TROPONIN I 0.219 ng/mL (0.000-0.045)
--- NOTE | 2020-01-23 00:49 | NUR ---
REPORT CALLED TO MOISES ROBIN, PT CARE TO BE TRANSFERRED UPON ARRIVAL TO THE FLOOR. AND MOISES UPDATE ON CRITICAL VALUE.
--- NOTE | 2020-01-23 01:44 | NUR ---
late entry d/t pt care: RT called d/t pt increased o2 requirement, placed on simple o2 mask 10L, VM left for Tamir MURPHY and Nati ROBIN called and made aware. pt nad, appears more comfortable, resp rate wnl. wctm. pt to be transferred to floor
[2020-01-23] MEDS ORDERED: FUROSEMIDE 40 MG/4 ML IV ONE ×3 (02:00→16:00)
[2020-01-23 03:52] VITALS: BP 162/76
[2020-01-23] MEDS: PANTOPRAZOLE 40MG TABLET PO SCH (05:58)
[2020-01-23] MEDS: HEPARIN 5,000 UNITS/ML, 1ML SQ SCH (05:59)
[2020-01-23] MEDS ORDERED: ASPIRIN 81 MG TABLET EC PO SCH (06:00)
[2020-01-23] MEDS ORDERED: LORazepam 1MG TABLET PO PRN ×3 (07:00)
[2020-01-23] MEDS ORDERED: LORazepam 2 MG/ML, 1ML IV PRN ×3 (07:00)
[2020-01-23 07:14] VITALS: BP 162/94
[2020-01-23 07:21] LABS: BASOPHILS % (AUTO) 0 % (0-1); EOSINOPHILS % (AUTO) 0 % (1-7); LYMPHOCYTES % (AUTO) 2 % (22-44); MEAN CORPUSCULAR HEMOGLOBIN 34.2 pg (27.5-34.5); MEAN CORPUSCULAR HGB CONC 32.9 g/dL (33.2-36.2); MEAN PLATELET VOLUME 7.8 fL (7.4-10.4); MONOCYTES % (AUTO) 1 % (2-9); NEUTROPHILS % (AUTO) 96 % (42-75); PLATELET COUNT 238 x10^3/uL (130-400); RED BLOOD COUNT 3.61 x10^6/uL (4.38-5.82); RED CELL DISTRIBUTION WIDTH 16.3 % (9.4-14.8)
[2020-01-23] MEDS: METOPROLOL TARTRATE 25 MG TAB PO SCH ×3 (07:31→23:11)
[2020-01-23] MEDS: DIAZEPAM 10 MG TABLET PO SCH ×3 (07:31→20:21)
[2020-01-23 07:32] LABS: ANION GAP 11 mmol/L (5-15); CHLORIDE 114 mmol/L (98-107); CREATININE 2.11 mg/dL (0.7-1.3); TROPONIN I 0.566 ng/mL (0.000-0.045)
[2020-01-23] MEDS: AMLODIPINE 10 MG TAB PO SCH (08:21)
[2020-01-23] MEDS: DOXYCYCLINE 100MG TABLET PO SCH ×2 (08:21→20:22)
[2020-01-23] MEDS: DEXAMETHASONE 4 MG/ML, 1ML IVPush SCH (08:21)
[2020-01-23] MEDS: THIAMINE 100MG TABLET PO SCH (08:21)
[2020-01-23] MEDS: CLOPIDOGREL 75 MG TABLET PO SCH (08:21)
[2020-01-23] MEDS: MAGNESIUM OXIDE 400 MG TABLET PO SCH (08:21)
[2020-01-23 08:31] LABS: C-REACTIVE PROTEIN, QUANT 0.14 mg/dL (0.02-0.49); TROPONIN I 0.619 ng/mL (0.000-0.045)
[2020-01-23 08:41] LABS: MD NO
[2020-01-23] MEDS ORDERED: HEPARIN 5,000 UNITS/ML, 1ML IV ONE (09:00)
[2020-01-23] MEDS ORDERED: HEPARIN 5,000 UNITS/ML, 1ML IV PRN (09:00)
[2020-01-23] MEDS: PRAZOSIN 5 MG CAPSULE PO SCH ×2 (10:53→20:23)
[2020-01-23] MEDS: HEPARIN 25,000 UNITS/250ML PMX 250 ML IV PRN (11:18)
[2020-01-23] MEDS: CEFTRIAXONE PMX 1GM/50ML 50 ML IV SCH (11:22)
[2020-01-23 13:48] VITALS: BP 133/75
[2020-01-23] MEDS: CARVEDILOL 6.25 MG TABLET PO SCH (17:19)
[2020-01-23] MEDS: ATORVASTATIN 40 MG TABLET PO SCH (20:22)
[2020-01-23 20:33] VITALS: BP 132/79
[2020-01-24 00:37] VITALS: BP 116/69
[2020-01-24] MEDS: DIAZEPAM 10 MG TABLET PO SCH (01:00)
[2020-01-24] MEDS: ALBUTEROL HFA 90 MCG/SPRAY INH PRN ×2 (03:03→07:43)
[2020-01-24] MEDS: PANTOPRAZOLE 40MG TABLET PO SCH (05:26)
[2020-01-24] MEDS: CARVEDILOL 6.25 MG TABLET PO SCH ×2 (05:27→17:05)
[2020-01-24] MEDS: ASPIRIN 81 MG TABLET EC PO SCH (05:27)
[2020-01-24 06:43] VITALS: BP 146/82
[2020-01-24 07:18] LABS: BASOPHILS % (AUTO) 0 % (0-1); EOSINOPHILS % (AUTO) 0 % (1-7); LYMPHOCYTES % (AUTO) 4 % (22-44); MEAN CORPUSCULAR HEMOGLOBIN 34.9 pg (27.5-34.5); MEAN CORPUSCULAR HGB CONC 33.2 g/dL (33.2-36.2); MEAN PLATELET VOLUME 8.4 fL (7.4-10.4); MONOCYTES % (AUTO) 5 % (2-9); NEUTROPHILS % (AUTO) 91 % (42-75); PLATELET COUNT 204 x10^3/uL (130-400); RED BLOOD COUNT 3.41 x10^6/uL (4.38-5.82); RED CELL DISTRIBUTION WIDTH 16.5 % (9.4-14.8)
[2020-01-24] MEDS: CEFTRIAXONE PMX 1GM/50ML 50 ML IV SCH (07:42)
[2020-01-24 08:00] LABS: MD SCAN
[2020-01-24 08:10] LABS: ANION GAP 6 mmol/L (5-15); CALCIUM 8.8 mg/dL (8.5-10.1); CHLORIDE 110 mmol/L (98-107); CREATININE 3.54 mg/dL (0.7-1.3)
[2020-01-24] MEDS: PRAZOSIN 5 MG CAPSULE PO SCH ×2 (09:07→20:16)
[2020-01-24] MEDS: DEXAMETHASONE 4 MG/ML, 1ML IVPush SCH (09:07)
[2020-01-24] MEDS: MAGNESIUM OXIDE 400 MG TABLET PO SCH (09:07)
[2020-01-24] MEDS: DIAZEPAM 5 MG TABLET PO SCH ×3 (09:08→20:12)
[2020-01-24] MEDS: THIAMINE 100MG TABLET PO SCH (09:08)
[2020-01-24] MEDS: DOXYCYCLINE 100MG TABLET PO SCH ×2 (09:08→20:12)
[2020-01-24] MEDS: AMLODIPINE 10 MG TAB PO SCH (09:08)
[2020-01-24] MEDS: CLOPIDOGREL 75 MG TABLET PO SCH (09:08)
[2020-01-24] MEDS: ALBUTEROL HFA 90 MCG/SPRAY INH SCH ×3 (13:00→19:18)
[2020-01-24] MEDS ORDERED: SODIUM ZIRCONIUM CYCLOSILICATE 10 GM PO ONE (13:30)
[2020-01-24 13:54] VITALS: BP 134/76
[2020-01-24 17:43] LABS: ANION GAP 8 mmol/L (5-15); CALCIUM 8.6 mg/dL (8.5-10.1); CHLORIDE 107 mmol/L (98-107)
[2020-01-24 18:45] VITALS: BP 126/73
[2020-01-24] MEDS: HEPARIN 25,000 UNITS/250ML PMX 250 ML IV PRN (19:15)
[2020-01-24] MEDS ORDERED: PRAZOSIN 1 MG CAPSULE ONE (20:04)
[2020-01-24] MEDS ORDERED: PRAZOSIN 2 MG CAPSULE ONE (20:07)
[2020-01-24] MEDS: ATORVASTATIN 40 MG TABLET PO SCH (20:12)
[2020-01-24 21:59] LABS: MICROSCOPIC AUTO
[2020-01-25 00:34] VITALS: BP 147/80
[2020-01-25] MEDS: DIAZEPAM 5 MG TABLET PO SCH ×4 (01:28→21:28)
[2020-01-25] MEDS: ALBUTEROL HFA 90 MCG/SPRAY INH SCH ×7 (01:29→22:56)
[2020-01-25 04:41] VITALS: BP 161/88
[2020-01-25 05:22] LABS: BASOPHILS % (AUTO) 0 % (0-1); EOSINOPHILS % (AUTO) 0 % (1-7); LYMPHOCYTES % (AUTO) 7 % (22-44); MEAN CORPUSCULAR HEMOGLOBIN 35.2 pg (27.5-34.5); MEAN CORPUSCULAR HGB CONC 33.8 g/dL (33.2-36.2); MEAN PLATELET VOLUME 8.9 fL (7.4-10.4); MONOCYTES % (AUTO) 5 % (2-9); NEUTROPHILS % (AUTO) 88 % (42-75); PLATELET COUNT 144 x10^3/uL (130-400); RED BLOOD COUNT 3.02 x10^6/uL (4.38-5.82); RED CELL DISTRIBUTION WIDTH 15.9 % (9.4-14.8)
[2020-01-25 05:23] LABS: MD NO
[2020-01-25 05:26] LABS: CALCIUM 8.6 mg/dL (8.5-10.1); CHLORIDE 110 mmol/L (98-107)
[2020-01-25 05:32] LABS: ALANINE AMINOTRANSFERASE 34 U/L (12-78); ALKALINE PHOSPHATASE 101 U/L (45-117); BILIRUBIN,TOTAL 0.5 mg/dL (0.2-1.0); CREATININE 3.43 mg/dL (0.7-1.3); TOTAL PROTEIN 6.2 g/dL (6.4-8.2)
[2020-01-25 05:33] LABS: ANION GAP 9 mmol/L (5-15)
[2020-01-25] MEDS: CARVEDILOL 6.25 MG TABLET PO SCH ×2 (05:44→17:38)
[2020-01-25] MEDS: ASPIRIN 81 MG TABLET EC PO SCH (05:44)
[2020-01-25] MEDS: PANTOPRAZOLE 40MG TABLET PO SCH (05:44)
[2020-01-25] MEDS: CEFTRIAXONE PMX 1GM/50ML 50 ML IV SCH (07:22)
[2020-01-25 07:41] VITALS: BP 145/88
[2020-01-25] MEDS ORDERED: REGADENOSON 0.4 MG/5 ML SYRINGE ONE (09:08)
[2020-01-25] MEDS ORDERED: AMINOPHYLLINE 25 MG/ML, 10ML ONE (09:29)
[2020-01-25] MEDS: PRAZOSIN 5 MG CAPSULE PO SCH ×2 (10:27→21:28)
[2020-01-25] MEDS: DOXYCYCLINE 100MG TABLET PO SCH ×2 (10:27→21:28)
[2020-01-25] MEDS: THIAMINE 100MG TABLET PO SCH (10:28)
[2020-01-25] MEDS: MAGNESIUM OXIDE 400 MG TABLET PO SCH (10:28)
[2020-01-25] MEDS: DEXAMETHASONE 4 MG/ML, 1ML IVPush SCH (10:28)
[2020-01-25] MEDS: CLOPIDOGREL 75 MG TABLET PO SCH (10:28)
[2020-01-25] MEDS: AMLODIPINE 10 MG TAB PO SCH (10:32)
[2020-01-25 17:39] VITALS: BP 160/80
[2020-01-25 19:10] VITALS: BP 114/62
[2020-01-25] MEDS: ATORVASTATIN 40 MG TABLET PO SCH (21:28)
[2020-01-26] VITALS (7 sets, daily range): BP systolic 130–155; BP diastolic 72–87
[2020-01-26 01:24] LABS: BASOPHILS % (AUTO) 0 % (0-1); EOSINOPHILS % (AUTO) 0 % (1-7); LYMPHOCYTES % (AUTO) 5 % (22-44); MEAN CORPUSCULAR HEMOGLOBIN 35.5 pg (27.5-34.5); MEAN CORPUSCULAR HGB CONC 34.4 g/dL (33.2-36.2); MEAN PLATELET VOLUME 8.7 fL (7.4-10.4); MONOCYTES % (AUTO) 3 % (2-9); NEUTROPHILS % (AUTO) 92 % (42-75); PLATELET COUNT 141 x10^3/uL (130-400); RED BLOOD COUNT 3.01 x10^6/uL (4.38-5.82); RED CELL DISTRIBUTION WIDTH 15.8 % (9.4-14.8)
[2020-01-26 01:32] LABS: ANION GAP 8 mmol/L (5-15); CALCIUM 8.2 mg/dL (8.5-10.1); CHLORIDE 111 mmol/L (98-107); CREATININE 2.69 mg/dL (0.7-1.3)
[2020-01-26 01:48] LABS: ANISOCYTOSIS 1+; MD MORPH REVIEW ONLY
[2020-01-26 01:49] LABS: <PLATELET ESTIMATE> DECREASED; <PLT MORPHOLOGY> NORMAL PLT MORPH; LARGE PLATELETS 1+; OVALOCYTES 1+; PMNS WITH VACUOLES 1+
[2020-01-26 01:50] LABS: TEAR DROPS 1+; TOXIC GRAN 1+
[2020-01-26 01:51] LABS: HYPOCHROMIA 1+; POLYCHROMASIA 1+
[2020-01-26] MEDS: DIAZEPAM 5 MG TABLET PO SCH (03:08)
[2020-01-26] MEDS: ALBUTEROL HFA 90 MCG/SPRAY INH SCH ×6 (03:08→23:00)
[2020-01-26] MEDS: ASPIRIN 81 MG TABLET EC PO SCH (05:10)
[2020-01-26] MEDS: PANTOPRAZOLE 40MG TABLET PO SCH (05:10)
[2020-01-26] MEDS: CARVEDILOL 6.25 MG TABLET PO SCH (05:18)
[2020-01-26] MEDS: CEFTRIAXONE PMX 1GM/50ML 50 ML IV SCH (06:45)
[2020-01-26] MEDS ORDERED: FUROSEMIDE 40 MG/4 ML IV ONE (07:00)
[2020-01-26] MEDS: THIAMINE 100MG TABLET PO SCH (09:00)
[2020-01-26] MEDS: MAGNESIUM OXIDE 400 MG TABLET PO SCH (09:36)
[2020-01-26] MEDS: HEPARIN 5,000 UNITS/ML, 1ML SQ SCH ×3 (09:36→23:04)
[2020-01-26] MEDS: PRAZOSIN 5 MG CAPSULE PO SCH ×2 (09:36→20:19)
[2020-01-26] MEDS: DOXYCYCLINE 100MG TABLET PO SCH ×2 (09:37→20:19)
[2020-01-26] MEDS: CLOPIDOGREL 75 MG TABLET PO SCH (09:37)
[2020-01-26] MEDS: CARVEDILOL 12.5 MG TABLET PO SCH (16:32)
[2020-01-26] MEDS: ATORVASTATIN 40 MG TABLET PO SCH (20:19)
[2020-01-27 01:11] VITALS: BP 150/80
[2020-01-27] MEDS: PANTOPRAZOLE 40MG TABLET PO SCH (04:11)
[2020-01-27] MEDS: ASPIRIN 81 MG TABLET EC PO SCH (04:11)
[2020-01-27] MEDS: ALBUTEROL HFA 90 MCG/SPRAY INH SCH ×4 (04:11→14:38)
[2020-01-27] MEDS: CARVEDILOL 12.5 MG TABLET PO SCH (04:27)
[2020-01-27] MEDS: ACETAMINOPHEN 325 MG TABLET PO PRN ×2 (04:27→12:20)
[2020-01-27 04:28] VITALS: BP 153/82
[2020-01-27 06:13] VITALS: BP 115/63
[2020-01-27] MEDS: CEFTRIAXONE PMX 1GM/50ML 50 ML IV SCH (06:23)
[2020-01-27] MEDS: HEPARIN 5,000 UNITS/ML, 1ML SQ SCH ×2 (06:23→14:37)
[2020-01-27 07:58] LABS: BASOPHILS % (AUTO) 0 % (0-1); EOSINOPHILS % (AUTO) 1 % (1-7); LYMPHOCYTES % (AUTO) 19 % (22-44); MEAN CORPUSCULAR HEMOGLOBIN 35.2 pg (27.5-34.5); MEAN CORPUSCULAR HGB CONC 33.9 g/dL (33.2-36.2); MEAN PLATELET VOLUME 9.3 fL (7.4-10.4); MONOCYTES % (AUTO) 8 % (2-9); NEUTROPHILS % (AUTO) 73 % (42-75); PLATELET COUNT 120 x10^3/uL (130-400); RED BLOOD COUNT 3.05 x10^6/uL (4.38-5.82); RED CELL DISTRIBUTION WIDTH 16.1 % (9.4-14.8)
[2020-01-27 08:06] LABS: MD NO
[2020-01-27 08:08] LABS: ANION GAP 8 mmol/L (5-15); CALCIUM 8.1 mg/dL (8.5-10.1); CHLORIDE 111 mmol/L (98-107)
[2020-01-27] MEDS ORDERED: AMLODIPINE 5 MG TABLET PO SCH (09:00)
[2020-01-27] MEDS: MAGNESIUM OXIDE 400 MG TABLET PO SCH (09:02)
[2020-01-27] MEDS: PRAZOSIN 5 MG CAPSULE PO SCH (09:02)
[2020-01-27] MEDS: CLOPIDOGREL 75 MG TABLET PO SCH (09:03)
[2020-01-27] MEDS: THIAMINE 100MG TABLET PO SCH (09:03)
[2020-01-27] MEDS: DOXYCYCLINE 100MG TABLET PO SCH (09:03)
[2020-01-27 12:06] VITALS: BP 151/80
[2020-01-27] MEDS ORDERED: CARV12.52 PO (12:36)
[2020-01-27] MEDS ORDERED: AMLO-150 PO (12:36)
[2020-01-27] MEDS ORDERED: ASPI81TA45 PO (12:36)
== END 2020-01-27 16:15 | disposition home health service (06) | DRG 280 ==
LOC: ED 13:49 → EDIP 20:52 → 4EST 01-23 01:58 → 4WST 01-24 13:04
PROVIDERS: ADMIT Family Medicine; ATTEND Family Medicine
DX: I21.4 Non-ST elevation (NSTEMI) myocardial infarction (principal); J96.01 Acute respiratory failure with hypoxia; I50.43 Acute on chronic combined systolic (congestive) and diastolic (congestive) heart failure; F10.239 Alcohol dependence with withdrawal, unspecified; G93.40 Encephalopathy, unspecified; I13.0 Hypertensive heart and chronic kidney disease with heart failure and stage 1 through stage 4 chronic kidney disease, or unspecified chronic kidney disease; I47.2 Ventricular tachycardia; N17.9 Acute kidney failure, unspecified; Z20.828 Contact with and (suspected) exposure to other viral communicable diseases; E78.5 Hyperlipidemia, unspecified; H54.62 Unqualified visual loss, left eye, normal vision right eye; I25.10 Atherosclerotic heart disease of native coronary artery without angina pectoris; M48.03 Spinal stenosis, cervicothoracic region; M48.02 Spinal stenosis, cervical region; I65.22 Occlusion and stenosis of left carotid artery; I25.5 Ischemic cardiomyopathy; D53.9 Nutritional anemia, unspecified; F10.229 Alcohol dependence with intoxication, unspecified; I73.9 Peripheral vascular disease, unspecified; N18.9 Chronic kidney disease, unspecified; R29.6 Repeated falls; F17.210 Nicotine dependence, cigarettes, uncomplicated; W18.39XA Other fall on same level, initial encounter; Y93.89 Activity, other specified; Y92.89 Other specified places as the place of occurrence of the external cause; Y99.8 Other external cause status; Z79.02 Long term (current) use of antithrombotics/antiplatelets; Z79.82 Long term (current) use of aspirin; Z86.73 Personal history of transient ischemic attack (TIA), and cerebral infarction without residual deficits; Z86.79 Personal history of other diseases of the circulatory system; Z91.81 History of falling; Z95.1 Presence of aortocoronary bypass graft
CPT/HCPCS: 36415; 70450; 70486; 71045; 72125; 76770; 78452; 78580; 80048; 80053; 80307; 81001; 82550; 82570; 83615; 83735; 83880; 84100; 84300; 84484; 85025; 85379; 85520; 85610; 85730; 86140; 93005; 93017; 93970; 96374; 96375; G0378; J0696; J1100; J1644; J1940; J2785; J3411; A9502; A9540; C9898; J0280; J2060; U0003

== ENCOUNTER 2020-02-01 09:16 | Inpatient (IN) | payer MEDICARE ==
[~2020-02-01] VITALS: Ht 170.2 cm; Wt 80.9 kg
[~2020-02-01 09:16] MED LIST changes: +AMLO-150 PO; +ASPI81TA45 PO; +CARV12.52 PO
--- NOTE | 2020-02-01 09:27 | NUR ---
Pt BIBA from home-c/o increasing SOB since being dc'd Monday from [facility] with a new dx of CHF. Pt reports SOB worse over the last 2 days. Pt with tachypnea-lungs diminished bilat bases, clear bilat upper lobes. Pt denies pain, reports SOB improved by lasix and ntg paste that were given by EMS. Pt placed in gown, positioned for comfort in bed. Continuous heart, oxygen and BP monitors applied, all safety measures observed.
[2020-02-01] MEDS ORDERED: SODIUM CHLORIDE FLUSH 10ML SYR IVF ONE (09:30)
--- NOTE | 2020-02-01 09:46 | NUR ---
bedside report from ash craig
[2020-02-01 09:48] LABS: MEAN CORPUSCULAR HEMOGLOBIN 34.5 pg (27.5-34.5); MEAN CORPUSCULAR HGB CONC 33.5 g/dL (33.2-36.2); MEAN PLATELET VOLUME 8.2 fL (7.4-10.4); PLATELET COUNT 186 x10^3/uL (130-400); RED BLOOD COUNT 3.51 x10^6/uL (4.38-5.82); RED CELL DISTRIBUTION WIDTH 16.1 % (9.4-14.8)
[2020-02-01 09:56] LABS: ALBUMIN 3.3 g/dL (3.4-5.0); ANION GAP 7 mmol/L (5-15); CALCIUM 8.4 mg/dL (8.5-10.1); CHLORIDE 111 mmol/L (98-107)
[2020-02-01 10:02] LABS: ALANINE AMINOTRANSFERASE 42 U/L (12-78); ALKALINE PHOSPHATASE 95 U/L (45-117); BILIRUBIN,TOTAL 0.5 mg/dL (0.2-1.0); CREATININE 1.89 mg/dL (0.7-1.3); TOTAL PROTEIN 6.8 g/dL (6.4-8.2); TROPONIN I 0.101 ng/mL (0.000-0.045)
[2020-02-01 10:03] LABS: MD YES
[2020-02-01 10:05] LABS: ANISOCYTOSIS 1+; BAND#(MANUAL) 0.37 x10^3/uL; BANDS%(MANUAL) 6 % (0-7); LYMPH#(MANUAL) 0.49 x10^3/uL (1-3.4); LYMPHS% (MANUAL) 8 % (22-44); MONOS#(MANUAL) 0.37 x10^3/uL (0.3-2.7); MONOS% (MANUAL) 6 % (2-9); OVALOCYTES 1+; SEG#(MANUAL) 4.88 x10^3/uL (1.8-6.8); SEGS% (MANUAL) 80 % (42-75)
[2020-02-01 10:06] LABS: <PLATELET ESTIMATE> ADEQUATE; <PLT MORPHOLOGY> NORMAL PLT MORPH
[2020-02-01] MEDS ORDERED: NITROGLYCERIN OINT 2%, 1GM TP ONE ×2 (10:25→10:30)
[2020-02-01] MEDS ORDERED: FUROSEMIDE 40 MG/4 ML ONE (10:25)
[2020-02-01] MEDS ORDERED: ENOXAPARIN 100 MG/ML ONE (10:25)
[2020-02-01] MEDS ORDERED: ENOXAPARIN 80 MG/0.8 ML SQ ONE (10:30)
[2020-02-01] MEDS ORDERED: FUROSEMIDE 40 MG/4 ML IV ONE (10:30)
[2020-02-01] MEDS ORDERED: ENOXAPARIN 80 MG/0.8 ML ONE (10:34)
--- NOTE | 2020-02-01 10:40 | NUR ---
HOSPITAL BED REQ. @ [id number]
[2020-02-01] MEDS ORDERED: ONDANSETRON 2MG/ML, 2ML IVPush PRN (12:30)
[2020-02-01] MEDS ORDERED: hydrALAzine 20 MG/ML, 1ML IVPush PRN (12:30)
[2020-02-01] MEDS ORDERED: ACETAMINOPHEN 325 MG TABLET PO PRN (12:30)
--- NOTE | 2020-02-01 12:53 | NUR ---
pt resting comfortably at this time. nadn. trents
[2020-02-01 14:06] VITALS: BP 164/99
[2020-02-01 14:24] VITALS: BP 171/79
[2020-02-01 14:34] VITALS: BP 171/79
[2020-02-01] MEDS: CARVEDILOL 12.5 MG TABLET PO SCH (17:11)
[2020-02-01] MEDS: FUROSEMIDE 40 MG/4 ML IV SCH (17:12)
[2020-02-01 21:02] VITALS: BP 144/79
[2020-02-01] MEDS: ATORVASTATIN 40 MG TABLET PO SCH (21:02)
[2020-02-01] MEDS: PRAZOSIN 5 MG CAPSULE PO SCH (21:02)
[2020-02-02 02:00] VITALS: BP 154/84
[2020-02-02] MEDS: ASPIRIN 81 MG TABLET EC PO SCH (04:58)
[2020-02-02] MEDS: CARVEDILOL 12.5 MG TABLET PO SCH ×2 (04:59→17:36)
[2020-02-02 05:11] LABS: BASOPHILS % (AUTO) 1 % (0-1); EOSINOPHILS % (AUTO) 2 % (1-7); LYMPHOCYTES % (AUTO) 19 % (22-44); MEAN CORPUSCULAR HEMOGLOBIN 34.6 pg (27.5-34.5); MEAN CORPUSCULAR HGB CONC 33.7 g/dL (33.2-36.2); MEAN PLATELET VOLUME 8.1 fL (7.4-10.4); MONOCYTES % (AUTO) 14 % (2-9); NEUTROPHILS % (AUTO) 64 % (42-75); PLATELET COUNT 183 x10^3/uL (130-400); RED BLOOD COUNT 3.09 x10^6/uL (4.38-5.82); RED CELL DISTRIBUTION WIDTH 15.4 % (9.4-14.8)
[2020-02-02 05:13] LABS: MD NO
[2020-02-02 05:16] LABS: ANION GAP 7 mmol/L (5-15); CALCIUM 8.2 mg/dL (8.5-10.1); CHLORIDE 111 mmol/L (98-107); CREATININE 1.72 mg/dL (0.7-1.3)
[2020-02-02 07:05] VITALS: BP 136/82
[2020-02-02] MEDS: CLOPIDOGREL 75 MG TABLET PO SCH (09:23)
[2020-02-02] MEDS: OMEPRAZOLE 20 MG CAPSULE.DR PO SCH (09:23)
[2020-02-02] MEDS: AMLODIPINE 5 MG TABLET PO SCH (09:23)
[2020-02-02] MEDS: PRAZOSIN 5 MG CAPSULE PO SCH ×2 (09:23→21:13)
[2020-02-02] MEDS: FUROSEMIDE 40 MG/4 ML IV SCH ×2 (09:24→17:35)
[2020-02-02 13:15] VITALS: BP 139/78
[2020-02-02] MEDS ORDERED: LOPERAMIDE 2 MG CAPSULE PO PRN (13:30)
[2020-02-02] MEDS: HEPARIN 5,000 UNITS/ML, 1ML SQ SCH (13:37)
[2020-02-02] MEDS ORDERED: MAGNESIUM SULFATE 1 GM in SODIUM CHLORIDE 0.9% 50 ML IV ONE (17:30)
[2020-02-02] MEDS ORDERED: POTASSIUM CHLORIDE 20 MEQ TAB.ER.PRT PO ONE (17:30)
[2020-02-02] MEDS ORDERED: MAGNESIUM SULFATE/D5W 100 ML IVPB ONE (17:45)
[2020-02-02 18:25] VITALS: BP 149/75
[2020-02-02] MEDS: ATORVASTATIN 40 MG TABLET PO SCH (21:13)
[2020-02-02] MEDS ORDERED: MELATONIN 5 MG TABLET PO PRN (21:30)
[2020-02-02 23:00] VITALS: BP 127/77
[2020-02-03] MEDS: HEPARIN 5,000 UNITS/ML, 1ML SQ SCH ×2 (00:51→12:30)
[2020-02-03 05:20] LABS: ANION GAP 7 mmol/L (5-15); CALCIUM 8.3 mg/dL (8.5-10.1); CHLORIDE 110 mmol/L (98-107)
[2020-02-03 05:25] LABS: ALANINE AMINOTRANSFERASE 31 U/L (12-78); ALKALINE PHOSPHATASE 81 U/L (45-117); BILIRUBIN,TOTAL 0.4 mg/dL (0.2-1.0); CREATININE 2.02 mg/dL (0.7-1.3); TOTAL PROTEIN 6.2 g/dL (6.4-8.2)
[2020-02-03 06:04] VITALS: BP 156/82
[2020-02-03] MEDS: ASPIRIN 81 MG TABLET EC PO SCH (06:05)
[2020-02-03] MEDS: CARVEDILOL 12.5 MG TABLET PO SCH ×2 (06:05→17:15)
[2020-02-03 06:58] VITALS: BP 143/82
[2020-02-03] MEDS: FUROSEMIDE 40 MG TABLET PO SCH ×2 (10:36→17:00)
[2020-02-03] MEDS: CLOPIDOGREL 75 MG TABLET PO SCH (10:36)
[2020-02-03] MEDS: PRAZOSIN 5 MG CAPSULE PO SCH (10:36)
[2020-02-03] MEDS: AMLODIPINE 5 MG TABLET PO SCH (10:36)
[2020-02-03] MEDS: OMEPRAZOLE 20 MG CAPSULE.DR PO SCH (10:36)
[2020-02-03 12:14] VITALS: BP 131/77
[2020-02-03] MEDS ORDERED: POTA10TA PO (15:55)
[2020-02-03] MEDS ORDERED: LISI2.5T PO (15:55)
[2020-02-03] MEDS ORDERED: FURO40TA6 PO (15:55)
[2020-02-03 17:18] VITALS: BP 159/81
== END 2020-02-03 22:18 | disposition home or self-care (01) | DRG 291 ==
LOC: ED 09:57 → EDIP 10:31 → 5SO 13:58
PROVIDERS: ADMIT Family Medicine; ATTEND Hospitalist
DX: I13.0 Hypertensive heart and chronic kidney disease with heart failure and stage 1 through stage 4 chronic kidney disease, or unspecified chronic kidney disease (principal); I50.43 Acute on chronic combined systolic (congestive) and diastolic (congestive) heart failure; J96.01 Acute respiratory failure with hypoxia; I24.8 Other forms of acute ischemic heart disease; Z20.828 Contact with and (suspected) exposure to other viral communicable diseases; I25.10 Atherosclerotic heart disease of native coronary artery without angina pectoris; I25.5 Ischemic cardiomyopathy; I65.22 Occlusion and stenosis of left carotid artery; N18.30 Chronic kidney disease, stage 3 unspecified; F10.10 Alcohol abuse, uncomplicated; I73.9 Peripheral vascular disease, unspecified; F17.210 Nicotine dependence, cigarettes, uncomplicated; Z86.79 Personal history of other diseases of the circulatory system; Z91.11 Patient's noncompliance with dietary regimen; Z95.1 Presence of aortocoronary bypass graft; Z79.899 Other long term (current) drug therapy; Z79.01 Long term (current) use of anticoagulants; Z79.891 Long term (current) use of opiate analgesic; Z79.82 Long term (current) use of aspirin; Z80.1 Family history of malignant neoplasm of trachea, bronchus and lung; Z80.0 Family history of malignant neoplasm of digestive organs; Z84.89 Family history of other specified conditions; Z91.19 Patient's noncompliance with other medical treatment and regimen
CPT/HCPCS: 36415; 71045; 80048; 80053; 80320; 83735; 83880; 84100; 84484; 85025; 93005; 96372; 99291; G0378; J1644; J1650; J1940; G0480